=== PATIENT | male | born 1975 | race Caucasian/White ===

== ENCOUNTER → 2016-07-23 | Outpatient (CLI) | payer BC, OTHER ==
--- NOTE | 2016-07-25 21:58 | DI ---
XR SHOULDER MIN 2VW,07/23/2016 2:36 PM: Clinical History: Right shoulder pain. Previous Exam: None at this facility. Findings: Multiple views of the right shoulder are obtained, and demonstrate anatomic alignment without fractur es. Surrounding soft tissues are unremarkable. The adjacent right lung and chest wall are unremarkabl e. Impression: Normal right shoulder.
== END ==
LOC: LAB 15:00
PROVIDERS: ATTEND Family Medicine
DX: I10 Essential (primary) hypertension (principal); R07.9 Chest pain, unspecified; M25.511 Pain in right shoulder
CPT/HCPCS: 36415; 73030; 83880; 84484; 85379